=== PATIENT | male | born 1995 | race Caucasian/White ===

== ENCOUNTER 2023-07-24 18:43 | Emergency (ER) | payer SELFPAY ==
[~2023-07-24] VITALS: Ht 167.6 cm; Wt 687.0 kg
[2023-07-24 18:57] VITALS: BP 141/101; PULSE 91; RESP 16; O2SAT 98
[2023-07-24 22:02] VITALS: TEMP 98.5
[2023-07-24] MEDS: ACETAMINOPHEN 325MG TABLET PO ONE (22:02)
[2023-07-24 22:22] LABS: CLARITY URINE CLEAR (CLEAR); COLOR URINE YELLOW (YELLOW); GLUCOSE URINE NEGATIVE (NEGATIVE); KETONES URINE NEGATIVE (NEGATIVE); LEUKOCYTE ESTERASE URINE NEGATIVE (NEGATIVE); NITRITE URINE NEGATIVE (NEGATIVE); OCCULT BLOOD URINE 1+ (NEGATIVE); PROTEIN URINE NEGATIVE (NEGATIVE); UROBILINOGEN URINE 0.2 E.U./dL (0.2-1.0)
[2023-07-24 22:32] LABS: BACTERIA URINE NONE SEEN; SQUAMOUS EPITHELIAL CELL URINE 1+ /lpf (RARE/1+); WBC URINE 0-2 /hpf (0-2)
[2023-07-24] MEDS ORDERED: NAPR-1176 MT (22:46)
[2023-07-24] MEDS ORDERED: LIDO700A15 TP (22:46)
== END 2023-07-24 23:06 | disposition home or self-care (01) ==
LOC: ER 18:43
DX: M54.9 Dorsalgia, unspecified (principal)
CPT/HCPCS: 81003; 82962; 99283